=== PATIENT | male | born 1940 | race Caucasian/White ===

== ENCOUNTER 2016-10-31 08:00 | Outpatient (CLI) | payer MEDICARE, OTHER | END 2016-10-31 08:01 | disposition home or self-care (01) | DX: I48.2 Chronic atrial fibrillation (principal); Z79.899 Other long term (current) drug therapy; R06.00 Dyspnea, unspecified ==

== ENCOUNTER 2016-10-31 15:14 | Outpatient (CLI) | payer MEDICARE, OTHER ==
--- NOTE | 2016-11-01 10:44 | XRAY Report ---
TWO-VIEW CHEST: 10/31/2016 CLINICAL INDICATION: Shortness of breath. COMPARISON: 12/03/2012 FINDINGS: Frontal and lateral views of the chest demonstrate an enlarged cardiac silhouette. Right subclavian pacemaker wires appear stable, but one wire does not appear to be connected to the new pac emaker pack. The cardiac silhouette is enlarged. The lungs are hyperinflated, compatible with COPD. No focal consolidation, effusion, or pneumothorax is present. A small hiatal hernia is noted. IMPRESSION: COPD, BUT NO EVIDENCE OF ACUTE CARDIOPULMONARY DISEASE. POSSIBLE DISCONNECTION OF ONE P ACEMAKER WIRE. Results called to Dr. Damian on 11/01/2016 at 10:20 a.m. JOB #: [id number] EXT JOB #:[id number]
== END 2016-10-31 15:15 | disposition home or self-care (01) ==
LOC: DI 15:14
PROVIDERS: ATTEND Internal Medicine
DX: J44.9 Chronic obstructive pulmonary disease, unspecified (principal); Z95.0 Presence of cardiac pacemaker
CPT/HCPCS: 36415; 71020; 83880; 84443; 85025

== ENCOUNTER 2017-02-27 06:05 | Day surgery (SDC) | payer MEDICARE, OTHER ==
[2017-02-27] MEDS ORDERED: LACTATED RINGERS 500 ML IV ONE (06:35)
[2017-02-27] MEDS ORDERED: LACTATED RINGERS 1,000 ML IV ONE (06:35)
[2017-02-27] MEDS ORDERED: CYCLOPENTOLATE 1% OPHTH DROPS 2 ML ONE (06:36)
[2017-02-27] MEDS ORDERED: PROPARACAINE 0.5% OPHTH DROPS 15 ML ONE (06:36)
[2017-02-27] MEDS ORDERED: KETOROLAC 0.45% OPHTH DROPS ONE (06:36)
[2017-02-27] MEDS ORDERED: PHENYLEPHRINE 2.5% OPHTH 2 ML DROPS ONE (06:36)
[2017-02-27] MEDS ORDERED: TRIAMCINOLONE PF 40 MG/ML VIAL ONE (06:44)
[2017-02-27] MEDS ORDERED: ACETYLCHOLINE 20 MG/2 ML KIT IO ONE (06:44)
[2017-02-27] MEDS ORDERED: BRIMONIDINE 0.2% OPHTH DROPS 5 ML ONE (06:44)
[2017-02-27] MEDS ORDERED: TIMOLOL 0.5% OPHTH DROPS ONE (06:44)
[2017-02-27] MEDS ORDERED: PROPARACAINE 0.5% OPHTH DROPS 15 ML OPTH ONE ×2 (06:50→07:29)
[2017-02-27] MEDS ORDERED: KETOROLAC 0.45% OPHTH DROPS OPTH ONE (06:50)
[2017-02-27] MEDS ORDERED: CYCLOPENTOLATE 1% OPHTH DROPS 2 ML OPTH ONE (06:50)
[2017-02-27] MEDS ORDERED: PHENYLEPHRINE 2.5% OPHTH 2 ML DROPS OPTH ONE (06:50)
[2017-02-27] MEDS ORDERED: TRYPAN BLUE 0.5 ML SYRINGE IO ONE (07:22)
[2017-02-27] MEDS ORDERED: TRIAMCIN/MOXIFLOX/VANCO 1 ML VIAL IO ONE ×2 (07:29)
[2017-02-27] MEDS ORDERED: CHONDR SULF/HYALURONATE SYRINGE IO ONE (07:29)
[2017-02-27] MEDS ORDERED: BRIMONIDINE 0.2% OPHTH DROPS 5 ML OPTH ONE (07:29)
[2017-02-27] MEDS ORDERED: TIMOLOL 0.5% OPHTH DROPS OPTH ONE (07:29)
[2017-02-27] MEDS ORDERED: EPINEPHrine 1 MG/ML AMP IVP ONE (07:29)
[2017-02-27] MEDS ORDERED: BSS/LIDOCAINE/EPINEPHRINE 1 ML SYRINGE IO ONE ×2 (07:29)
[2017-02-27] MEDS ORDERED: MIDAZOLAM 2 MG/2 ML VIAL IVP ONE (07:35)
--- NOTE | 2017-02-27 08:11 | OPERATIVE REPORT ---
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 Cataract surgery was perform ed on the right eye on 06/07/[address] Haji. 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 Cataract surgery was perfor med on the right eye on 06/07/[address] Haji. NAME OF PROCEDURE: Phacoemulsification posterior chamber intraocular lens implant, left eye. SURGEON: Jameel Dowd MD. ANESTHESIA: Monitored anesthesia care. COMPLICATIONS: None. OPERATIVE INDICATIONS: This is a 77-year-old man with progressive vision loss in the left eye due to 2+ nuclear sclerotic and 2+ posterior subcapsular cataract. Best corrected visual acuity was 20/20 wi th glare to 20/125 in the left eye. Indications for surgery were difficulty driving in low light or a t night, difficulty driving at night because of headlights from other vehicles and/or street lights, and difficulty with glare or bright lights in any situation. He was consented at length concerning th e risks and benefits of cataract surgery, after which he expressed a desire to proceed with surgery. OPERATIVE PROCEDURE: The patient was taken into OR #2 and placed under monitored anesthesia care. A s urgical time-out was conducted confirming the correct patient, correct procedure, and correct surgica l site. He was given topical anesthesia and then prepped and draped in the usual sterile fashion. The eye was entered at the 6- and 3 o'clock positions. Intracameral Shugarcaine was injected into the an terior chamber followed by Viscoat. Four limbal stab incisions were made with a 1 mm blade superonasa lly, superotemporally, inferotemporally and inferonasally, through which 4 iris hooks were placed int o the anterior chamber and engaged the pupil at 4 points and pulled the iris into the periphery. Once that was accomplished, a continuous tear curvilinear capsulorrhexis was performed. The nucleus was h ydrodissected and phacoemulsified. The cortex was evacuated using automated infusion aspiration. Prov isc was injected in the capsular bag and a 14.5 diopter intraocular lens inserted into the bag. The i ris hooks were then disengaged from the pupil margin and removed from the anterior chamber and passed off the field. The eye was inflated to a physiologic pressure using balanced salt solution, then tory roximately 0.7 mL of a mixture of triamcinolone, moxifloxacin, and vancomycin was injected subconjunc tivally in the superior quadrant for infection and inflammation prophylaxis. I/A was used to evacuate the viscoelastic materials. The eye was again inflated to physiologic pressure using balanced salt s olution and found to be watertight. The patient was taken from the operating room in good condition a nd given postoperative instructions. JOB #: [id number] EXT JOB #:[id number]
[2017-02-27 08:21] VITALS: BP 113/84
== END 2017-02-27 06:06 | disposition home or self-care (01) ==
LOC: SDS 06:05
PROVIDERS: ATTEND Ophthalmology
PROC: 08RK3JZ Replacement of Left Lens with Synthetic Substitute, Percutaneous Approach (ICD-10-PCS; principal; 2017-02-27 07:30)
DX: H25.812 Combined forms of age-related cataract, left eye (principal); H21.81 Floppy iris syndrome; T44.6X5A Adverse effect of alpha-adrenoreceptor antagonists, initial encounter; E11.9 Type 2 diabetes mellitus without complications; N40.0 Benign prostatic hyperplasia without lower urinary tract symptoms; Z79.01 Long term (current) use of anticoagulants; I48.91 Unspecified atrial fibrillation; Z95.0 Presence of cardiac pacemaker; Z87.891 Personal history of nicotine dependence; Z86.73 Personal history of transient ischemic attack (TIA), and cerebral infarction without residual deficits; Z85.828 Personal history of other malignant neoplasm of skin
CPT/HCPCS: 66982; A9270; J3490; V2632

== ENCOUNTER 2019-09-06 16:35 | Outpatient (CLI) | payer MEDICARE, OTHER | END 2019-09-06 16:36 | disposition home or self-care (01) | LOC: COV 16:35 | PROVIDERS: ATTEND Family Medicine | DX: R05 Cough (principal); R50.9 Fever, unspecified | CPT/HCPCS: 81599; U0002 ==

== ENCOUNTER 2020-06-02 13:44 | Outpatient (CLI) | payer MEDICARE, OTHER ==
--- NOTE | 2020-06-02 14:40 | XRAY Report ---
PROCEDURE: Foot 3 View LT INDICATIONS: LT LOWER EXTREMITY ULCER TECHNIQUE: 3 views of the foot were acquired. COMPARISON: None FINDINGS: Bones: No fractures or dislocations. Mild interphalangeal joint osteoarthritic changes are seen. Mod erate first MTP joint osteoarthritic changes are seen. No suspicious bony lesions. Soft tissues: No tibiotalar joint effusion. Achilles tendon appears normal. IMPRESSION: No fracture or dislocation. No radiographic evidence of osteomyelitis. Reviewed by: Aaron Saleem MD on 06/02/2020 1:39 PM [facility] Approved by: Aaron Saleem MD on 06/02/2020 1:39 PM [facility] Station ID: [id number]
--- NOTE | 2020-06-02 14:40 | XRAY Report ---
PROCEDURE: Ankle 3 View LT INDICATIONS: LATERAL LT ANKLE ULCER TECHNIQUE: 3 views of the ankle were acquired. COMPARISON: None FINDINGS: Bones: No fractures or dislocations. Ankle mortise is normally aligned. No suspicious bony lesions . Soft tissues: No tibiotalar joint effusion. Achilles tendon appears normal. Lateral ankle soft tis jade swelling is seen. IMPRESSION: Lateral ankle soft tissue swelling. No fracture or dislocation. No radiographic evidence of osteomyelitis. Reviewed by: Aaron Saleem MD on 06/02/2020 1:39 PM [facility] Approved by: Aaron Saleem MD on 06/02/2020 1:39 PM [facility] Station ID: [id number]
== END 2020-06-02 13:45 | disposition home or self-care (01) ==
LOC: DI.N 13:44
PROVIDERS: ATTEND Physician Assistant
DX: L89.521 Pressure ulcer of left ankle, stage 1 (principal); M25.572 Pain in left ankle and joints of left foot; M79.672 Pain in left foot

== ENCOUNTER 2020-10-13 11:44 | Emergency (ER) | payer MEDICARE, OTHER ==
--- OUTSIDE RECORDS SUMMARY | 2020-10-13 11:48 | EXTERNAL MEDICAL SUMMARY RPT | Continuity of Care Document ---
:1940 Demographics Phone Unavailable Preferred Language [place] Marital Status Unknown Rastafarian Affiliation Unknown Race Unknown Ethnic Group Unknown Author Organization [facility] [address] [place] [address] Phone Care Team Providers Name Role Phone Roof Unavailable Unavailable Problems date description facility [id number] Encounter for immunization [facility] Social History date description facility [id number]
[2020-10-13] MEDS ORDERED: TRANEXAMIC ACID 1,000 MG/10 ML VIAL NAS STA (12:00)
--- OUTSIDE RECORDS SUMMARY | 2020-10-13 12:24 | EXTERNAL MEDICAL SUMMARY RPT | Continuity of Care Document ---
:1940 Demographics Phone Unavailable Preferred Language Brazilian Marital Status Unknown Anabaptism Affiliation Unknown Race Unknown Ethnic Group Unknown Author Organization [facility] [address] [phone] Phone Care Team Providers Name Role Phone Adithya Damian Unavailable Unavailable Problems date description facility [id number] Encounter for immunization [facility] Social History date description facility [id number]
[2020-10-13] MEDS ORDERED: LIDOCAINE 1%-EPI 1:100000 20 ML MDV SUBQ STA (14:38)
--- NOTE | 2020-10-13 15:31 | ED Physician Documentation ---
PD HPI SKIN - Stated complaint Stated Complaint: CANT STOP BLEEDING - Chief complaint Chief Complaint: Wound - Additional information Additional information: 80yM with pmh PVD p/w bleeding to L ankle after being seen at wound clinic for ulcer at the site that has been progressively worsening over past few days. Ulcer began to spurt blood concerning for arterial bleed while in wound clinic. quick clot was applied but it continued to bleed. on arrival to ed patient was given txa soaked gauze and compressive dressing with resolution of bleeding. sensation and movement of extremity is at baseline. denies fevers. Review of Systems Skin: reports: Other (bleeding ulcer) Neurologic: denies: Focal weakness, Numbness PD PAST MEDICAL HISTORY - Past Medical History Cardiovascular: High cholesterol, Atrial fibrillation Respiratory: Sleep apnea Endocrine/Autoimmune: Type 2 diabetes GI: GERD : Benign prostate hypertrophy HEENT: Other Psych: None Musculoskeletal: Osteoarthritis, Chronic back pain Derm: Other Other Past Medical History: Pacemaker - Past Surgical History Past Surgical History: Yes General: Cholecystectomy, Hiatal hernia repair, Colonoscopy, EGD, Other Ortho: Shoulder arthroplasty Cardiovascular: Pacemaker HEENT: Cataracts - Present Medications Home Medications: Ambulatory Orders Medication Instructions Recorded Confirmed Atorvastatin Calcium 40 mg PO DAILY 12/03/12 10/13/20 Metformin HCl [Metformin HCl ER] 250 mg PO BID 12/03/12 10/13/20 Omeprazole [PriLOSEC] 20 mg PO BID 12/03/12 10/13/20 Warfarin [Coumadin] 5 - 7.5 mg PO 1400 12/03/12 10/13/20 Cholecalciferol (Vitamin D3) 2,000 unit PO DAILY 07/18/14 10/13/20 [Vitamin D-3] Magnesium Citrate 500 mg PO DAILY 07/18/14 10/13/20 Metoprolol Succinate 50 mg PO BID 07/18/14 10/13/20 Multivit-Min/FA/Lycopene/Lut 1 tab PO DAILY 07/18/14 10/13/20 [Centrum Silver Tablet] Tamsulosin [Flomax] 0.4 mg PO DAILY 07/18/14 10/13/20 Finasteride 5 mg PO DAILY 02/27/17 10/13/20 Acetaminophen [Tylenol] 650 mg PO Q4HR PRN 06/22/20 10/13/20 Calcium Carbonate [Calcium] 630 mg PO QPM 06/22/20 10/13/20 Diltiazem HCl [Diltiazem 12Hr ER] 120 mg PO QPM 06/22/20 10/13/20 Fluticasone [Flonase] 1 spray INH DAILY PRN 06/22/20 10/13/20 Famotidine [Acid-Pep] 20 mg PO BID 10/13/20 10/13/20 - Allergies Allergies/Adverse Reactions: Allergies Allergy/AdvReac Type Severity Reaction Status Date / Time morphine Allergy unknown Verified 10/13/20 11:57 - Social History Does the pt smoke?: No Smoking Status: Never smoker Does the pt drink ETOH?: No Does the pt have substance abuse?: No - Immunizations Immunizations are current?: Yes - POLST Patient has POLST: No PD ED PE NORMAL - Vitals Vital signs reviewed: Yes - General General: Alert and oriented X 3, No acute distress, Well developed/nourished - Derm Derm: Other (ulcerated region to L ankle with dressing in place . hemostatic) - Extremities Extremities: No deformity Results - Vitals Vitals: Vital Signs - 24 hr 10/13/20 10/13/20 10/13/20 11:53 14:39 15:33 Temperature 36.5 C 36.9 C 36.9 C Heart Rate 64 60 67 Respiratory 16 14 14 Rate Blood Pressure 139/74 H 128/67 134/75 H O2 Saturation 99 99 100 Oxygen O2 Source Room air PD MEDICAL DECISION MAKING - ED course ED course: Irrigated the wound with copious normal saline and it is now hemostatic after applying TXA for a prolonged period of time with Chidi bandage loosely wrapped around it. Education given to the patient about wound care and need to follow- up in wound clinic and with vascular surgery. Strict return precautions given. Departure - Departure Disposition: 01 Home, Self Care Clinical Impression: Bleeding ulcer Condition: Good Instructions: ED PVD Comments: You were seen in the emergency department for a bleeding artery. It was likely the posterior tibial artery on the inside of your ankle. After applying quick clot and a gauze dressing soaked in TXA (a medicine that causes clotting), the bleeding has stopped on its own. Leave the dressing in place for 24 to 48 hours and then follow-up with wound clinic for referral to vascular surgery. Return to the emergency department if you experience any new bleeding or have other concerns. Discharge Date/Time: 10/13/20 15:37
[2020-10-13 15:35] VITALS: BP 134/75
== END 2020-10-13 15:37 | disposition home or self-care (01) ==
LOC: ED 11:44
DX: E11.622 Type 2 diabetes mellitus with other skin ulcer (principal); L97.329 Non-pressure chronic ulcer of left ankle with unspecified severity; R58 Hemorrhage, not elsewhere classified; E11.51 Type 2 diabetes mellitus with diabetic peripheral angiopathy without gangrene; Z79.84 Long term (current) use of oral hypoglycemic drugs; I48.91 Unspecified atrial fibrillation; Z79.01 Long term (current) use of anticoagulants
CPT/HCPCS: 99282; 99283

== ENCOUNTER 2022-07-29 17:56 | Outpatient (CLI) | payer MEDICARE, OTHER | END 2022-07-29 17:57 | disposition critical access hospital (66) | LOC: EMS 17:56 | DX: R58 Hemorrhage, not elsewhere classified (principal); Z79.01 Long term (current) use of anticoagulants | CPT/HCPCS: A0425; A0429 ==

== ENCOUNTER 2022-07-29 18:16 | Emergency (ER) | payer MEDICARE, OTHER ==
[2022-07-29] MEDS ORDERED: LIDOCAINE 1%-EPI 1:100000 20 ML MDV SUBQ STA (18:20)
--- NOTE | 2022-07-29 18:21 | ED Physician Documentation ---
PD HPI LOWER EXT INJURY - Stated complaint Stated Complaint: ANKLE BLEEDING - History obtained from History obtained from: Patient, EMS - Additional information Additional information: 82-year-old gentleman on warfarin for atrial fibrillation has a bleeding varicose vein to the right ankle. It started just this evening. The vein itself has actually been bothering him for a while and was seen by his primary care physician and he requested a referral to wound care. The bleeding just started tonight though. It is painless. Paramedics think there was about 100 mL of blood in his cowboy boots. PD PAST MEDICAL HISTORY - Past Medical History Cardiovascular: High cholesterol, Atrial fibrillation Respiratory: Sleep apnea Endocrine/Autoimmune: Type 2 diabetes GI: GERD : Benign prostate hypertrophy HEENT: Other Psych: None Musculoskeletal: Osteoarthritis, Chronic back pain Derm: Other - Past Surgical History Past Surgical History: Yes General: Cholecystectomy, Hiatal hernia repair, Colonoscopy, EGD, Other Ortho: Shoulder arthroplasty Cardiovascular: Pacemaker HEENT: Cataracts - Present Medications Home Medications: Ambulatory Orders Medication Instructions Recorded Confirmed Atorvastatin Calcium 40 mg PO DAILY 12/03/12 10/20/20 Omeprazole [PriLOSEC] 20 mg PO BID 12/03/12 10/20/20 Warfarin [Coumadin] 5 - 7.5 mg PO 1400 12/03/12 10/20/20 Magnesium Citrate 500 mg PO DAILY 07/18/14 10/20/20 Metoprolol Succinate 50 mg PO BID 07/18/14 10/20/20 Tamsulosin [Flomax] 0.4 mg PO DAILY 07/18/14 10/20/20 Finasteride 5 mg PO DAILY 02/27/17 10/20/20 Acetaminophen [Tylenol] 650 mg PO Q4HR PRN 06/22/20 10/20/20 Diltiazem HCl [Diltiazem 12Hr ER] 120 mg PO QPM 06/22/20 10/20/20 Famotidine [Acid-Pep] 20 mg PO BID 10/13/20 10/20/20 Desonide 2 applic TOP BID 10/20/20 10/20/20 - Allergies Allergies/Adverse Reactions: Allergies Allergy/AdvReac Type Severity Reaction Status Date / Time metformin Allergy Unknown Verified 07/29/22 18:25 morphine Allergy unknown Verified 07/29/22 18:25 - Social History Does the pt smoke?: No Smoking Status: Never smoker Does the pt drink ETOH?: No Does the pt have substance abuse?: No - Immunizations Immunizations are current?: Yes - POLST Patient has POLST: No PD ED PE NORMAL - Vitals Vital signs reviewed: Yes - General General: Alert and oriented X 3, No acute distress - Derm Derm: Normal color, Warm and dry - Extremities Extremities: Other (There is a knuckle of varicose vein to the right medial calcaneus with sequela of recent active bleeding but no active bleeding at this time.) - Neuro Neuro: Alert and oriented X 3, Normal speech Results - Vitals Vitals: Vital Signs - 24 hr 07/29/22 07/29/22 18:20 18:47 Temperature 37 C Heart Rate 62 60 Respiratory 17 17 Rate Blood Pressure 140/121 H 135/78 H O2 Saturation 97 98 Oxygen O2 Source Room air - Labs Labs: Laboratory Tests 07/29/22 18:29 INR (Fingerstick) 2.4 H Procedures - General procedure General procedure: The varicose vein was prepped with iodine and then locally draped, locally infiltrated with lidocaine with epinephrine and then a [id number] stitch with 4-0 suture was placed. There was still some oozing and some Dermabond was placed with hemostasis. He was counseled on wound care. PD Medical Decision Making - ED course Complexity details: reviewed results (INR within preferred range.) ED course: 82-year-old gentleman with bleeding varicose vein. It was sutured with a [id number] suture and some Dermabond with hemostasis and counseled on wound care. His INR is within the preferred range. Departure - Departure Disposition: 01 Home, Self Care Clinical Impression: Bleeding from varicose vein, Adequate anticoagulation on anticoagulant therapy Condition: Good Record reviewed to determine appropriate education?: Yes Instructions: ED Veins Varicose Comments: Come back for any signs of infection which would include: Redness, swelling, drainage, increased pain, or fevers. You can wash it soap and water. Keep it covered with a nonstick dressing Follow-up with your physician in 14 days for suture removal. Discharge Date/Time: 07/29/22 19:09
[2022-07-29 18:47] VITALS: BP 135/78
== END 2022-07-29 19:09 | disposition home or self-care (01) ==
LOC: EDUNIT# → ED 18:16
DX: I83.891 Varicose veins of right lower extremity with other complications (principal); I48.91 Unspecified atrial fibrillation; Z79.01 Long term (current) use of anticoagulants; Z95.0 Presence of cardiac pacemaker
CPT/HCPCS: 85610; 99282; 99283